=== PATIENT | male | born 1990 | race Caucasian/White ===

== ENCOUNTER 2019-09-14 15:07 | Observation (INO) | payer MEDICAID ==
[~2019-09-14 15:07] MED LIST: Sodium Chloride 0.9% 1,000 ML IV ONE
[2019-09-14] MEDS ORDERED: LORazepam 2 MG/ML SDV IVPUSH ONE (15:11)
[2019-09-14] MEDS ORDERED: fentaNYL 100 MCG/2 ML SDV IVPUSH ONE (15:11)
[2019-09-14] MEDS ORDERED: Ondansetron 4 MG/2 ML SDV IVPUSH ONE (15:11)
[2019-09-14] MEDS ORDERED: Ondansetron 4 MG/2 ML SDV ONE (15:15)
[2019-09-14] MEDS ORDERED: LORazepam 2 MG/ML SDV ONE (15:15)
[2019-09-14] MEDS ORDERED: fentaNYL 100 MCG/2 ML SDV ONE (15:15)
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
[2019-09-14] MEDS ORDERED: Iopamidol 612 MG/ML 100 ML Bottle IVPUSH ONE (15:37)
[2019-09-14 16:03] LABS: CHLORIDE,CL 103 mmol/L (98-107); SODIUM,NA 142 mmol/L (136-145)
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
[2019-09-14 16:05] LABS: ANION GAP 16.6 mmol/L (10-20)
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
--- NOTE | 2019-09-14 16:40 | CT ---
[id number] CT/CT Cervical Spine WO IV Exam: CT Cervical Spine WO IV Clinical Data: TRAUMA COMPARISON: NO PREVIOUS SIMILAR EXAM IS AVAILABLE FINDINGS: There is no fracture or subluxation There is a normal appearance of the prevertebral soft tissues The C1-C2 articulation is intact IMPRESSION: NO FRACTURE OR SUBLUXATION Dimitri Baer MD 09/16/19 0837 Thank you for allowing us to participate in the care of your patient.
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
[2019-09-14 17:51] LABS: BARBITURATE SCREEN,URINE NEGATIVE (NEGATIVE); BENZODIAZEPINES SCREEN,URINE NEGATIVE (NEGATIVE); EDDP,URINE SCREEN NEGATIVE (NEGATIVE); METHAMPHETAMINE SCREEN, URINE NEGATIVE (NEGATIVE); TCA SCREEN,URINE NEGATIVE (NEGATIVE); THC SCREEN,URINE 50 NG/ML NEGATIVE (NEGATIVE)
[2019-09-14] MEDS ORDERED: Acetaminophen 325 MG Tab PO PRN (18:30)
[2019-09-14] MEDS ORDERED: HYDROmorphone 1 MG/ML Syringe IVPUSH PRN (18:35)
--- NOTE | 2019-09-14 18:39 | PCM.HP.2 ---
H&P History of Present Illness - General Date of Service: 09/14/19 Admit Problem/Dx: Admission Diagnosis/Problem Admission Diagnosis/Problem Pelvic ring fracture - History of Present Illness Initial Comments - Free Text/Narative: See ER note and use as Observation Admission H&P - Related Data Allergies/Adverse Reactions: Allergies Allergy/AdvReac Type Severity Reaction Status Date / Time No Known Allergies Allergy Verified 09/14/19 18:01 Home Medications: Home Meds Divalproex Sodium [Depakote] 500 mg PO BEDTIME 09/14/19 [History] Ibuprofen [Ibu] 800 mg PO Q8H 10 Days #90 tablet 09/14/19 [Rx] QUEtiapine [SEROquel] 300 mg PO BEDTIME 09/14/19 [History] buPROPion HCl [Wellbutrin Xl] 300 mg PO DAILY 09/14/19 [History] oxyCODONE HCl/Acetaminophen [Oxycodone-Acetaminophen 5-325] 1 - 2 each PO Q4HR 10 Days #30 tablet 09/14/19 [Rx] Past Medical History Psychiatric History: Reports: Bipolar, Depression - Infectious Disease History Infectious Disease History: Reports: Chicken Pox Social & Family History - Family History Family Medical History: Unobtainable - Tobacco Use Smoking Status *Q: Never Smoker Second Hand Smoke Exposure: No - Caffeine Use Caffeine Use: Reports: Energy Drinks, Soda - Recreational Drug Use Recreational Drug Use: No H&P Review of Systems - Review of Systems: Review Of Systems: See Below Reason Not Obtained: See ER H&P Exam - Exam Exam: Not Obtained - Vital Signs Vital Signs: Last Vital Signs Temp 36.8 C 09/14/19 18:00 Pulse 100 09/14/19 18:00 Resp 18 09/14/19 18:00 BP 122/82 09/14/19 18:00 Pulse Ox 97 09/14/19 18:00 Weight: 83.824 kg - Patient Data Lab Results Last 24 hrs: Laboratory Results - last 24 hr 09/14/19 09/14/19 09/14/19 Range/Units 15:35 15:35 17:35 WBC 7.3 (4.0-10.0) x10^3/uL RBC 5.22 (4.5-6.0) x10^6/uL Hgb 15.3 (14.0-18.0) g/dL Hct 42.9 (40.0-52.0) % MCV 82.2 (78.0-93.0) fL MCH 29.3 (26.0-32.0) pg MCHC 35.7 (32.0-36.0) g/dL RDW Coeff of [place] 12.7 (10.0-15.0) % Plt Count 224 (130-400) x10^3/uL Neut % (Auto) 64.4 (50.0-80.0) % Lymph % (Auto) 28.7 (25.0-50.0) % [place] % (Auto) 6.6 (2.0-11.0) % Eos % (Auto) 0.0 (0.0-4.0) % Baso % (Auto) 0.3 (0.2-1.2) % Sodium 142 (136-145) mmol/L Potassium 3.6 (3.5-5.1) mmol/L Chloride 103 (98-107) mmol/L Carbon Dioxide 26 (21-32) mmol/L Anion Gap 16.6 (10-20) mmol/L BUN 16 (7-18) mg/dL Creatinine 1.1 (0.70-1.30) mg/dL Est Cr Clr Drug Dosing TNP Estimated GFR (MDRD) > 60 Glucose 95 (74-106) mg/dL Calcium 8.5 (8.5-10.1) mg/dL Corrected Calcium 8.42 L (8.5-10.1) mg/dL Total Bilirubin 0.6 (0.2-1.0) mg/dL AST 30 (15-37) U/L ALT 24 (16-63) U/L Alkaline Phosphatase 82 (46-116) U/L Total Protein 7.6 (6.4-8.2) g/dL Albumin 4.1 (3.4-5.0) g/dL Globulin 3.5 Albumin/Globulin Ratio 1.17 Urine Color Yellow (YELLOW) Urine Appearance Clear (CLEAR) Urine pH 7.0 (5.0-8.0) Ur Specific [place] 1.015 Urine Protein 30 H (NEGATIVE) mg/dL Urine Glucose (UA) Negative (NEGATIVE) mg/dL Urine Ketones Negative (NEGATIVE) mg/dL Urine Occult Blood Negative (NEGATIVE) Urine Nitrite Negative (NEGATIVE) Urine Bilirubin Negative (NEGATIVE) Urine Urobilinogen 0.2 (0.2) EU/dL Ur Leukocyte Esterase Negative (NEGATIVE) Urine RBC Not seen (NOT SEEN) /HPF Urine WBC Not seen (NOT SEEN) /HPF Ur Squamous Epith Cells Rare (NEGATIVE) /HPF Urine Bacteria Not seen (NEGATIVE) /HPF Hyaline Casts Rare H (NEGATIVE) /HPF Urine Mucus Moderate H (NEGATIVE) /LPF Urine Opiates Screen (NEAGTIVE) Ur Buprenorphine Scrn (NEGATIVE) Ur Oxycodone Screen (NEGATIVE) Ur EDDP (Meth Metab) (NEGATIVE) Urine Methadone Screen (NEGATIVE) Ur Barbiturates Screen (NEGATIVE) Ur Tricyclics Screen (NEGATIVE) Ur Phencyclidine Scrn (NEGATIVE) Ur Amphetamine Screen (NEGATIVE) U Methamphetamines Scrn (NEGATIVE) Urine MDMA Screen (NEGATIVE) U Benzodiazepines Scrn (NEGATIVE) U Cocaine Metab Screen (NEGATIVE) U Marijuana (THC) Screen (NEGATIVE) Ethyl Alcohol < 3 (0-3) mg/dL 09/14/19 Range/Units 17:35 WBC (4.0-10.0) x10^3/uL RBC (4.5-6.0) x10^6/uL Hgb (14.0-18.0) g/dL Hct (40.0-52.0) % MCV (78.0-93.0) fL MCH (26.0-32.0) pg MCHC (32.0-36.0) g/dL RDW Coeff of [place] (10.0-15.0) % Plt Count (130-400) x10^3/uL Neut % (Auto) (50.0-80.0) % Lymph % (Auto) (25.0-50.0) % [place] % (Auto) (2.0-11.0) % Eos % (Auto) (0.0-4.0) % Baso % (Auto) (0.2-1.2) % Sodium (136-145) mmol/L Potassium (3.5-5.1) mmol/L Chloride (98-107) mmol/L Carbon Dioxide (21-32) mmol/L Anion Gap (10-20) mmol/L BUN (7-18) mg/dL Creatinine (0.70-1.30) mg/dL Est Cr Clr Drug Dosing Estimated GFR (MDRD) Glucose (74-106) mg/dL Calcium (8.5-10.1) mg/dL Corrected Calcium (8.5-10.1) mg/dL Total Bilirubin (0.2-1.0) mg/dL AST (15-37) U/L ALT (16-63) U/L Alkaline Phosphatase (46-116) U/L Total Protein (6.4-8.2) g/dL Albumin (3.4-5.0) g/dL Globulin Albumin/Globulin Ratio Urine Color (YELLOW) Urine Appearance (CLEAR) Urine pH (5.0-8.0) Ur Specific [place] Urine Protein (NEGATIVE) mg/dL Urine Glucose (UA) (NEGATIVE) mg/dL Urine Ketones (NEGATIVE) mg/dL Urine Occult Blood (NEGATIVE) Urine Nitrite (NEGATIVE) Urine Bilirubin (NEGATIVE) Urine Urobilinogen (0.2) EU/dL Ur Leukocyte Esterase (NEGATIVE) Urine RBC (NOT SEEN) /HPF Urine WBC (NOT SEEN) /HPF Ur Squamous Epith Cells (NEGATIVE) /HPF Urine Bacteria (NEGATIVE) /HPF Hyaline Casts (NEGATIVE) /HPF Urine Mucus (NEGATIVE) /LPF Urine Opiates Screen Negative (NEAGTIVE) Ur Buprenorphine Scrn Negative (NEGATIVE) Ur Oxycodone Screen Negative (NEGATIVE) Ur EDDP (Meth Metab) Negative (NEGATIVE) Urine Methadone Screen Negative (NEGATIVE) Ur Barbiturates Screen Negative (NEGATIVE) Ur Tricyclics Screen Negative (NEGATIVE) Ur Phencyclidine Scrn Negative (NEGATIVE) Ur Amphetamine Screen Negative (NEGATIVE) U Methamphetamines Scrn Negative (NEGATIVE) Urine MDMA Screen Negative (NEGATIVE) U Benzodiazepines Scrn Negative (NEGATIVE) U Cocaine Metab Screen Negative (NEGATIVE) U Marijuana (THC) Screen Negative (NEGATIVE) Ethyl Alcohol (0-3) mg/dL Result Diagrams: 09/14/19 15:35 09/14/19 15:35 - Problem List (1) Fracture of superior ramus of left pubis SNOMED Code(s): 217898080 ICD Code: S32.512A - FRACTURE OF SUPERIOR RIM OF LEFT PUBIS, INIT FOR CLOS FX Status: Acute Current Visit: Yes Qualifiers: Encounter type: initial encounter Fracture type: closed Qualified Code(s) : S32.512A - Fracture of superior rim of left pubis, initial encounter for closed fracture (2) Inferior pubic ramus fracture SNOMED Code(s): 725308129 ICD Code: S32.599A - OTH FRACTURE OF UNSP PUBIS, INIT ENCNTR FOR CLOSED FRACTURE Status: Acute Current Visit: Yes Qualifiers: Encounter type: initial encounter Fracture type: closed Laterality: left Qualified Code(s): S32.592A - Other specified fracture of left pubis, initial encounter for closed fracture (3) Trauma SNOMED Code(s): 427783790 ICD Code: T14.90XA - INJURY, UNSPECIFIED, INITIAL ENCOUNTER Status: Acute Current Visit: Yes Problem List Initiated/Reviewed/Updated: Yes Orders Last 24hrs: Active Orders 24 hr Category Date Time Status Admission Status [Patient Status] [ADT] Routine ADT 09/14/19 17:42 Active Patient Status [ADT] Routine ADT 09/14/19 18:30 Active Cardiac Monitoring [RC] CONTINUOUS Care 09/14/19 18:33 Active Oxygen Therapy [RC] PRN Care 09/14/19 18:30 Active VTE/DVT Education [RC] PER UNIT ROUTINE Care 09/14/19 18:30 Active Vital Signs [RC] 02,06,10,14,18,22 Care 09/14/19 15:11 Active Vital Signs [RC] Q2HR Care 09/14/19 18:30 Active Regular Diet [DIET] Diet 09/14/19 Dinner Active CBC WITH AUTO DIFF [HEME] AM Lab 09/15/19 05:11 Ordered Acetaminophen [Tylenol] Med 09/14/19 18:30 Ordered 650 mg PO Q4H PRN Acetaminophen/oxyCODONE [Percocet 325-5 MG] Med 09/14/19 18:30 Ordered 2 tab PO Q4H PRN HYDROmorphone [Dilaudid] Med 09/14/19 18:35 Ordered 1 mg IVPUSH Q4H PRN Ketorolac [Toradol] Med 09/14/19 18:30 Ordered 30 mg IVPUSH Q6H Nicotine [Habitrol] Med 09/14/19 18:45 Ordered 7 mg TRDERM DAILY Sodium Chloride 0.9% [Saline Flush] Med 09/14/19 15:11 Active 10 ml FLUSH ASDIRECTED PRN Peripheral IV Insertion Adult [OM.PC] Urgent Oth 09/14/19 15:11 Ordered Saline Lock Insert [OM.PC] Urgent Oth 09/14/19 15:11 Ordered Code Status [Resuscitation Status] Routine Resus Stat 09/14/19 18:19 Ordered Medication Orders Acetaminophen (Tylenol) 650 mg PO Q4H PRN PRN Reason: Pain (Mild 1-3)/fever Hydromorphone HCl (Dilaudid) 1 mg IVPUSH Q4H PRN PRN Reason: Pain Ketorolac Tromethamine (Toradol) 30 mg IVPUSH Q6H JADEN Nicotine (Habitrol) 7 mg TRDERM DAILY JADEN Oxycodone/Acetaminophen (Percocet 325-5 Mg) 2 tab PO Q4H PRN PRN Reason: Pain (moderate 4-6) Sodium Chloride (Saline Flush) 10 ml FLUSH ASDIRECTED PRN PRN Reason: Keep Vein Open Assessment/Plan Comment:: -Will monitor vitals closely with Telemetry and q2Q checks -Pain control prn -Recheck CBC in AM - Mortality Measure Prognosis:: Good
[2019-09-14] MEDS: Ketorolac 30 MG/ML SDV IVPUSH SCH (19:32)
[2019-09-14] MEDS: Sodium Chloride 0.9% 10 ML Syringe FLUSH PRN (19:32)
[2019-09-14] MEDS: Nicotine 7 MG/24 Hr Patch TRDERM SCH (19:34)
[2019-09-14] MEDS ORDERED: QUEtiapine 100 MG Tab PO SCH (20:00)
[2019-09-14] MEDS ORDERED: Divalproex Sodium Delayed-Release 250 MG Tab.CR PO SCH (20:00)
[2019-09-15] MEDS: Ketorolac 30 MG/ML SDV IVPUSH SCH ×3 (00:17→11:38)
[2019-09-15] MEDS: Sodium Chloride 0.9% 10 ML Syringe FLUSH PRN ×3 (00:17→11:38)
[2019-09-15] MEDS: buPROPion 150 MG Tab.ER PO SCH ×2 (08:33→08:36)
[2019-09-15] MEDS: Acetaminophen/oxyCODONE 325-5 MG Tab PO PRN ×2 (08:33→11:38)
[2019-09-15] MEDS: Nicotine 7 MG/24 Hr Patch TRDERM SCH (08:34)
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
== END 2019-09-15 12:00 ==
LOC: EEVIPCON 15:07 → VM.ED 15:07 → VM.MS 17:42
PROVIDERS: ADMIT Nurse Practitioner Family; ATTEND Nurse Practitioner Family
DX: S32.512A Fracture of superior rim of left pubis, initial encounter for closed fracture (principal); S32.592A Other specified fracture of left pubis, initial encounter for closed fracture; V04.90XA Pedestrian on foot injured in collision with heavy transport vehicle or bus, unspecified whether traffic or nontraffic accident, initial encounter
CPT/HCPCS: 36415; 70450; 71045; 71260; 72125; 72170; 73590-RT; 74177; 80053; 80305-QW; 81001; 85025; 96374; 96375; 96376; 99217; 99219; 99283-GF; 99284-25; A9270-GY; G0378; G0480; J1170; J1885; J2060; J2405; J3010; J7030; Q9967

== ENCOUNTER 2019-09-15 17:11 | Emergency (ER) | payer SELFPAY ==
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
[2019-09-15] MEDS ORDERED: Acetaminophen/oxyCODONE 325-5 MG Tab PO ONE (17:42)
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
== END 2019-09-15 18:56 | disposition home or self-care (01) ==
LOC: VM.ED 17:11
DX: M25.551 Pain in right hip (principal); M25.552 Pain in left hip; M54.5 Low back pain; F31.9 Bipolar disorder, unspecified; Z79.899 Other long term (current) drug therapy
CPT/HCPCS: 74176; 99283-GF; 99284-25; A9270-GY